=== PATIENT | male | born 1985 | race Asian ===

== ENCOUNTER 2020-07-05 07:42 | Outpatient (CLI) | payer BC, OTHER ==
[2020-07-05 12:10] LABS: BASOPHILS # (AUTO) 0.1 10^3/uL (0.0-0.1); BASOPHILS % (AUTO) 1.6 %; EOSINOPHILS % (AUTO) 18.7 %; HCT - HEMATOCRIT 41.9 % (42.0-52.0); HGB - HEMOGLOBIN 12.3 g/dL (14.0-18.0); LYMPHOCYTES # (AUTO) 1.4 10^3/uL (1.5-3.5); LYMPHOCYTES % (AUTO) 24.9 %; MEAN CORPUSCULAR HEMOGLOBIN 20.7 pg (27.0-31.0); MEAN CORPUSCULAR HGB CONC 29.4 g/dL (32.0-36.0); MEAN CORPUSCULAR VOLUME 70.5 fL (80.0-94.0); MEAN PLATELET VOLUME 10.5 fL (7.4-11.4); MONOCYTES # (AUTO) 0.5 10^3/uL (0.0-1.0); MONOCYTES % (AUTO) 9.8 %; NEUTROPHILS # (AUTO) 2.5 10^3/uL (1.5-6.6); NEUTROPHILS % (AUTO) 44.6 %; PLT - PLATELET COUNT 252 10^3/uL (130-450); RED BLOOD COUNT 5.94 10^6/uL (4.70-6.10); RED CELL DISTRIBUTION WIDTH 14.2 % (12.0-15.0); WHITE BLOOD COUNT 5.5 x10^3/uL (4.8-10.8)
[2020-07-05 12:21] LABS: ALBUMIN 4.2 g/dL (3.2-5.5); ALBUMIN/GLOBULIN RATIO 1.3 (1.0-2.2); ALKALINE PHOSPHATASE 56 IU/L (42-121); ALT ALANINE AMINOTRANSFERASE 17 IU/L (10-60); AST ASPARTATE AMINOTRANSFERASE 18 IU/L (10-42); BILIRUBIN,TOTAL 0.9 mg/dL (0.2-1.0); BUN - BLOOD UREA NITROGEN 17 mg/dL (6-20); CALCIUM 9.4 mg/dL (8.5-10.3); CARBON DIOXIDE - CO2 30 mmol/L (21-32); CHLORIDE 105 mmol/L (101-111); CHOL/HDL RATIO 2.6 (<5.0); CHOLESTEROL 157 mg/dL; GFR - MDRD 86 (>89); GLUCOSE 91 mg/dL (70-100); HDL CHOLESTEROL 61 mg/dL; LDL CHOLESTEROL,CALCULATED 88 mg/dL; LDL/HDL RATIO 1.4 (<3.6); SODIUM 141 mmol/L (135-145); TOTAL PROTEIN 7.5 g/dL (6.7-8.2); TRIGLYCERIDES 41 mg/dL; VLDL CHOLESTEROL 8 mg/dL
[2020-07-05 12:33] LABS: THYROID STIMULATING HORMONE 1.75 uIU/mL (0.34-5.60)
== END 2020-07-05 07:43 | disposition home or self-care (01) ==
LOC: LAB.N 07:42
PROVIDERS: ATTEND Physician Assistant Medical
DX: Z00.00 Encounter for general adult medical examination without abnormal findings (principal)
CPT/HCPCS: 36415; 80053; 80061; 83721; 84443; 85025

== ENCOUNTER 2020-07-22 20:29 | Outpatient (CLI) | payer OTHER | END 2020-07-22 20:30 | disposition home or self-care (01) | LOC: COV 20:29 | PROVIDERS: ATTEND Family Medicine | DX: Z20.822 Contact with and (suspected) exposure to COVID-19 (principal) ==

== ENCOUNTER 2020-08-22 17:41 | Emergency (ER) | payer OTHER ==
[2020-08-22 17:49] VITALS: BP 134/90
[2020-08-22] MEDS ORDERED: DOXYCYCLINE 100 MG TABLET PO STA (18:07)
[2020-08-22] MEDS ORDERED: LIDOCAINE-EPINEPH-TETRACAINE 3 ML SYRINGE TOP STA (18:07)
[2020-08-22] MEDS ORDERED: ACETAMINOPHEN 325 MG TABLET PO STA (18:07)
--- NOTE | 2020-08-22 19:07 | ED Physician Documentation ---
PD HPI HEENT - Stated complaint Stated Complaint: DOG BITE - Chief complaint Chief Complaint: Laceration - History obtained from History obtained from: Patient - History of Present Illness Timing - onset: How many minutes ago (30) Timing - details: Abrupt onset, Still present (less bleeding than at initial of the wounds. Normal sensation on face.) Location: Other (right cheek bit by dog when he bent down to pet the dog that was there with a friend of a friend. It bled right away. Patient came directly to ER.) Associated symptoms: No: Fever, Congestion, Swollen nodes Similar symptoms before: Has not had sx before Review of Systems Constitutional: denies: Fever Eyes: denies: Loss of vision, Decreased vision, Photophobia, Irritation Nose: denies: Rhinorrhea / runny nose, Congestion Throat: denies: Sore throat Respiratory: denies: Cough Neurologic: denies: Focal weakness, Numbness PD PAST MEDICAL HISTORY - Past Medical History Cardiovascular: None Respiratory: None Neuro: None Endocrine/Autoimmune: None Psych: Depression - Past Surgical History Past Surgical History: No - Present Medications Home Medications: Ambulatory Orders Medication Instructions Recorded Confirmed FLUoxetine [PROzac] 60 mg ORAL DAILY 07/06/15 07/06/15 Doxycycline Monohydrate 150 mg PO BID #10 cap 08/22/20 - Allergies Allergies/Adverse Reactions: Allergies Allergy/AdvReac Type Severity Reaction Status Date / Time Penicillins AdvReac Itching Verified 08/22/20 17:49 - Social History Does the pt smoke?: No Smoking Status: Never smoker Does the pt drink ETOH?: No Does the pt have substance abuse?: No - Immunizations Immunizations are current?: No Immunizations: TDAP >10years/unknown PD ED PE NORMAL - Vitals Vital signs reviewed: Yes - General General: Alert and oriented X 3, No acute distress, Well developed/nourished - HEENT HEENT: PERRL, EOMI, Other (right upper cheek with 1.5 cm laceration, irregular edge, with mild bleeding still. No deep structures. Lower lip with 1 mm superficial lac. No direct care needed. ) Results - Vitals Vitals: Vital Signs - 24 hr 08/22/20 17:44 Temperature 36.3 C L Heart Rate 101 H Respiratory 14 Rate Blood Pressure 134/90 H O2 Saturation 99 Oxygen O2 Source Room air Procedures - Laceration (location) right facial cheek Length in cm: 1.5 Wound type: Irregular, Into subcut fat Neurovascular status: Sensory intact, Motor intact, Vascular intact Anesthesia: LET Wound preparation: Irrigated copiously NS, Wound explored, To the base. No: FB identified Skin layer closure: Nylon, Running, Size #-0 - enter number (6), Sutures - enter # (7) Other: Patient tolerated well, No complications, Neurovascular intact, Tetanus UTD PD MEDICAL DECISION MAKING - ED course Complexity details: considered differential, d/w patient, other (patiebnt did talk with [facility]) Departure - Departure Disposition: Home, Self Care Clinical Impression: Dog bite of face Qualifiers: Encounter type: initial encounter Qualified Code(s): S01.85XA - Open bite of other part of head, initial encounter Condition: Stable Record reviewed to determine appropriate education?: Yes Instructions: ED Laceration Facial Sutr Tape Follow-Up: Holly Gong PA-C [Primary Care Provider] - Prescriptions: Doxycycline Monohydrate 150 mg PO BID #10 cap Comments: It is okay to wash and shower. Clean off the wound twice a day with soap and water, or peroxide and water. Apply some antibiotic ointment to it to keep it moist. Also to watch for signs of infection such as purulence, redness or increasing pain. Return to your primary care or the ER at the specified time for suture removal. Suture removal 6 to 7 days. Doxycycline twice daily for 5 days for concern of infection. Follow-up with animal control/[employer] police regarding the dog bite and condition of the dog, per their instructions with the conversation today in the ER. Tylenol ibuprofen as needed for pains. Discharge Date/Time: 08/22/20 19:49
== END 2020-08-22 19:49 | disposition home or self-care (01) ==
LOC: ED 17:41
DX: S01.451A Open bite of right cheek and temporomandibular area, initial encounter (principal); W54.0XXA Bitten by dog, initial encounter
CPT/HCPCS: 12011; 99282; 99283; A9270

== ENCOUNTER 2020-08-27 19:13 | Emergency (ER) | payer OTHER ==
--- OUTSIDE RECORDS SUMMARY | 2020-08-27 19:16 | EXTERNAL MEDICAL SUMMARY RPT | Continuity of Care Document ---
:1985 Demographics Phone Unavailable Preferred Language Unknown Marital Status Unknown Tenriism Affiliation Unknown Race Unknown Ethnic Group Unknown Author Organization [facility] Address [address] [phone] Phone Allergies Encounters Medications Problems Results
--- OUTSIDE RECORDS SUMMARY | 2020-08-27 19:20 | EXTERNAL MEDICAL SUMMARY RPT | Continuity of Care Document ---
:1985 Demographics Phone Unavailable Preferred Language Unknown Marital Status Unknown Yazdanism Affiliation Unknown Race Unknown Ethnic Group Unknown Author Organization [facility] Address [address] [phone] Phone Allergies Encounters Medications Problems Results
[2020-08-27] MEDS ORDERED: IBUPROFEN 800 MG TABLET PO STA (20:04)
[2020-08-27] MEDS ORDERED: BACITRACIN ZINC OINT 1 PACKET TOP STA (20:04)
[2020-08-27] MEDS ORDERED: CHERRY SYRUP 10 ML UDC PO ONE (20:04)
[2020-08-27] MEDS ORDERED: DEXAMETHASONE 10 MG/ML VIAL PO STA (20:04)
--- NOTE | 2020-08-27 20:06 | ED Physician Documentation ---
History of Present Illness - Stated complaint Stated Complaint: BILAT HAND PX - Chief complaint Chief Complaint: Ext Problem - History obtained from History obtained from: Patient - History of Present Illness Timing: Today Pain level max: 5 Pain level now: 5 - Additonal information Additional information: 35-year-old male was recently placed on doxycycline after a dog bite. He states that today at work he noticed that his hands began to feel like they were burning. He has been working in the field all day picking strawberries. He states that his hands burn, but do not itch. It is just on the index finger and thumb of his bilateral hands. No rash elsewhere. Worse with movement, better with rest. Review of Systems Constitutional: denies: Fever GI: denies: Vomiting Musculoskeletal: denies: Neck pain, Back pain PD PAST MEDICAL HISTORY - Past Medical History Past Medical History: No Cardiovascular: None Respiratory: None Neuro: None Endocrine/Autoimmune: None Psych: Depression - Past Surgical History Past Surgical History: No - Present Medications Home Medications: Ambulatory Orders Medication Instructions Recorded Confirmed Doxycycline Monohydrate 150 mg PO BID #10 cap 08/22/20 08/27/20 Bacitracin Zinc Oint 1 applic TOP BID #1 gm 08/27/20 - Allergies Allergies/Adverse Reactions: Allergies Allergy/AdvReac Type Severity Reaction Status Date / Time Penicillins AdvReac Itching Verified 08/27/20 19:27 - Social History Does the pt smoke?: No Smoking Status: Never smoker Does the pt drink ETOH?: No Does the pt have substance abuse?: No - Immunizations Immunizations are current?: Yes Immunizations: TDAP >10years/unknown - POLST Patient has POLST: No PD ED PE NORMAL - Vitals Vital signs reviewed: Yes - General General: Alert and oriented X 3, No acute distress - HEENT HEENT: Moist mucous membranes - Derm Derm: Warm and dry - Extremities Extremities: Other (Erythema to the index finger and thumb of the bilateral hands, creating a C shape with the webspace. Blanches easily. Neurovascular intact. No blistering.) - Neuro Neuro: Alert and oriented X 3 Results - Vitals Vitals: Vital Signs - 24 hr 08/27/20 08/27/20 19:21 20:19 Temperature 37.1 C 37.5 C Heart Rate 78 71 Respiratory 16 16 Rate Blood Pressure 136/86 H 129/93 H O2 Saturation 100 100 Oxygen O2 Source Room air PD MEDICAL DECISION MAKING - ED course Complexity details: considered differential, d/w patient ED course: Patient appears to have a sunburn to the index finger and rightPatient appears to have a sunburn of the index finger and thumb of the bilateral hands, this would be on the surface that it was exposed to the sun all day while picking strawberries. Likely caused by the sensitivity to the sun from the doxycycline. Bacitracin applied. A single dose of steroid was given for swelling. Anti- inflammatory was given as well. Recommend sunscreen and gloves when he is outside. This does not appear to be an allergic reaction. This does not appear to be a chemical dermatitis. Patient counseled regarding signs and symptoms for which I believe and urgent re-evaluation would be necessary. Patient with good understanding of and agreement to plan and is comfortable going home at this time This document was made in part using voice recognition software. While efforts are made to proofread this document, sound alike and grammatical errors may occur. Departure - Departure Disposition: 01 Home, Self Care Clinical Impression: Sunburn Condition: Good Instructions: ED Burn Sunburn Follow-Up: Holly Gong PA-C [Primary Care Provider] - As Needed Prescriptions: Bacitracin Zinc Oint 1 applic TOP BID #1 gm Comments: This should heal in the next few days. You can use motrin for pain. Wear dale nscreen outside in the sun. Discharge Date/Time: 08/27/20 20:25
[2020-08-27 20:20] VITALS: BP 129/93
== END 2020-08-27 20:25 | disposition home or self-care (01) ==
LOC: ED 19:13
DX: L55.9 Sunburn, unspecified (principal); X32.XXXA Exposure to sunlight, initial encounter; Y93.89 Activity, other specified; Y92.73 Farm field as the place of occurrence of the external cause; Y99.0 Civilian activity done for income or pay
CPT/HCPCS: 99282; 99284; A9270

== ENCOUNTER 2020-11-07 08:00 | Outpatient (CLI) | payer OTHER ==
[2020-11-07 11:41] LABS: BASOPHILS # (AUTO) 0.1 10^3/uL (0.0-0.1); BASOPHILS % (AUTO) 2.5 %; EOSINOPHILS # (AUTO) 0.7 10^3/uL (0.0-0.7); EOSINOPHILS % (AUTO) 15.7 %; HCT - HEMATOCRIT 40.4 % (42.0-52.0); MEAN CORPUSCULAR HEMOGLOBIN 21.1 pg (27.0-31.0); MEAN CORPUSCULAR HGB CONC 29.7 g/dL (32.0-36.0); MEAN CORPUSCULAR VOLUME 70.9 fL (80.0-94.0); MEAN PLATELET VOLUME 9.8 fL (7.4-11.4); MONOCYTES # (AUTO) 0.5 10^3/uL (0.0-1.0); MONOCYTES % (AUTO) 10.9 %; NEUTROPHILS # (AUTO) 2.1 10^3/uL (1.5-6.6); NEUTROPHILS % (AUTO) 47.7 %; PLT - PLATELET COUNT 233 10^3/uL (130-450); WHITE BLOOD COUNT 4.4 x10^3/uL (4.8-10.8)
[2020-11-07 11:50] LABS: BILIRUBIN,URINE NEGATIVE (NEGATIVE); GLUCOSE, URINE (UA) NEGATIVE (NEGATIVE); KETONES,URINE (UA) NEGATIVE (NEGATIVE); LEUKOCYTE ESTERASE, URINE NEGATIVE (NEGATIVE); NITRITE,URINE NEGATIVE (NEGATIVE); OCCULT BLOOD,URINE LARGE (NEGATIVE); PROTEIN,URINE 30 mg/dL (NEGATIVE); UROBILINOGEN,URINE 0.2 (NORMAL) E.U./dL (NORMAL)
[2020-11-07 11:57] LABS: BACTERIA,URINE Rare /HPF (None Seen); CLARITY,URINE BLOODY (CLEAR); CRYSTALS,URINE 6-10 Calcium Oxalate /LPF; RBC,URINE TNTC /HPF (0-5); SQUAMOUS EPITHELIAL CELL,UR RARE Squamous (<= Few); WBC,URINE 0-3 /HPF (0-3)
[2020-11-07 16:20] LABS: CHLAMYDIA TRACHOMATIS DNA NEGATIVE (NEGATIVE); NEISSERIA GONORRHOEAE DNA NEGATIVE (NEGATIVE)
[2020-11-07 18:06] LABS: ALBUMIN 3.9 g/dL (3.2-5.5); ALBUMIN/GLOBULIN RATIO 1.3 (1.0-2.2); BILIRUBIN,TOTAL 0.8 mg/dL (0.2-1.0); CALCIUM 8.8 mg/dL (8.5-10.3); POTASSIUM 3.8 mmol/L (3.5-5.0)
== END 2020-11-07 23:59 | disposition home or self-care (01) ==
LOC: LAB.N 08:00
PROVIDERS: ATTEND Family Medicine
DX: R31.9 Hematuria, unspecified (principal)
CPT/HCPCS: 36415; 80053; 81001; 84153; 85025; 87086; 87491; 87591; 87661

== ENCOUNTER 2020-12-07 05:34 | Outpatient (CLI) | payer OTHER | END 2020-12-07 05:35 | disposition EMS.NT | LOC: EMS 05:34 | DX: R10.9 Unspecified abdominal pain (principal); R11.0 Nausea; R82.998 Other abnormal findings in urine ==

== ENCOUNTER 2020-12-07 06:24 | Emergency (ER) | payer OTHER ==
--- NOTE | 2020-12-07 07:21 | ED Physician Documentation ---
PD HPI ABD PAIN - Stated complaint Stated Complaint: BACK ABD PX - Chief complaint Chief Complaint: UTI - History obtained from History obtained from: Patient - History of Present Illness Timing - onset: How many weeks ago (almost a week of right abd to right flank pain. Seen by Walk In and presumed kidney stone with blood in urine. Sent to [facility] and had outpt CT ordered. This was done couple days ago and he was called/told that it showed right sided kidney stone. He has appt with Urology this coming week.) Timing - details: Gradual onset, Still present (much worse last night into this morning, with pain 10/10 this morning, so here for eval.), Waxing and waning Quality: Aching, Sharp, Pain Location: RLQ Radiation: Right flank Associated symptoms: Nausea, Hematuria. No: Fever, Vomiting, Diarrhea, Dysuria Similar symptoms before: Has not had sx before Recently seen: Clinic Review of Systems Constitutional: denies: Fever, Chills Nose: denies: Rhinorrhea / runny nose, Congestion Throat: denies: Sore throat Respiratory: denies: Cough GI: reports: Abdominal Pain, Nausea. denies: Vomiting, Diarrhea Skin: denies: Rash Musculoskeletal: reports: Back pain (right flank.). denies: Neck pain PD PAST MEDICAL HISTORY - Past Medical History Past Medical History: Yes Cardiovascular: None Respiratory: None Neuro: None Endocrine/Autoimmune: None GI: None : None HEENT: None Psych: Depression Musculoskeletal: None Derm: None - Past Surgical History Past Surgical History: No - Present Medications Home Medications: Ambulatory Orders Medication Instructions Recorded Confirmed HYDROcod/ACETAM 5/325 [[place] 5/325] 1 ea PO Q6H PRN #18 tablet 12/07/20 Tamsulosin [Flomax] 0.4 mg PO DAILY #5 cap 12/07/20 busPIRone [Buspar] 10 mg PO DAILY 12/07/20 12/07/20 dexAMETHasone [Decadron] 4 mg PO DAILY #5 tablet 12/07/20 - Allergies Allergies/Adverse Reactions: Allergies Allergy/AdvReac Type Severity Reaction Status Date / Time Penicillins AdvReac Itching Verified 08/27/20 19:27 - Social History Does the pt smoke?: No Smoking Status: Never smoker Does the pt drink ETOH?: No Does the pt have substance abuse?: No - Immunizations Immunizations are current?: Yes Immunizations: TDAP >10years/unknown - POLST Patient has POLST: No PD ED PE NORMAL - Vitals Vital signs reviewed: Yes - General General: Alert and oriented X 3, No acute distress, Well developed/nourished - Cardiac Cardiac: RRR, No murmur - Respiratory Respiratory: Clear bilaterally - Abdomen Abdomen: Normal bowel sounds, Soft, Non distended, No organomegaly, Other (some tender RLQ without guarding nor percussion. Not really [place] point. ) - Male Male : Deferred - Rectal Rectal: Deferred - Derm Derm: Normal color, Warm and dry Results - Vitals Vitals: Vital Signs - 24 hr 12/07/20 12/07/20 12/07/20 06:34 08:38 10:00 Temperature 37.0 C Heart Rate 60 64 56 L Respiratory 24 18 19 Rate Blood Pressure 116/101 H 122/88 H 110/79 O2 Saturation 95 98 99 Oxygen O2 Source Room air - Labs Labs: Laboratory Tests 12/07/20 12/07/20 07:53 10:02 Sodium 143 Potassium 4.5 Chloride 105 Carbon Dioxide 30 Anion Gap 8.0 BUN 18 Creatinine 1.2 Estimated GFR (MDRD) 69 L Glucose 125 H Calcium 9.3 Urine Color DARK YELLOW Urine Clarity CLOUDY Urine pH 7.0 Ur Specific [place] 1.020 Urine Protein TRACE Urine Glucose (UA) NEGATIVE Urine Ketones TRACE Urine Occult Blood LARGE H Urine Nitrite NEGATIVE Urine Bilirubin NEGATIVE Urine Urobilinogen 0.2 (NORMAL) Ur Leukocyte Esterase NEGATIVE Urine RBC TNTC H Urine WBC 11-25 H Ur Squamous Epith Cells RARE Squamous Urine Bacteria Few Urine Mucus Few Strands Ur Microscopic Review INDICATED Urine Culture Comments NOT INDICATED PD MEDICAL DECISION MAKING - ED course Complexity details: reviewed old records (unfortunately, after few hours, [facility] has not sent us the report of his CT from couple days ago, so will go with patient verbal that it showed a stone on right side ureter. Frustrating to not be able to just get a CT report from another facility. ), re-evaluated patient (Much improved with IV meds. ), considered differential (symptoms c/w kidney stone, and he reports Dx with stone by CT at [facility]. I would have liked to know size stone/etc. but could not get report from their Records nor DI. ), d/w patient Departure - Departure Disposition: 01 Home, Self Care Clinical Impression: Right sided abdominal pain, Ureterolithiasis Condition: Stable Record reviewed to determine appropriate education?: Yes Instructions: ED Stone Renal W Colic Prescriptions: dexAMETHasone [Decadron] 4 mg PO DAILY #5 tablet Tamsulosin [Flomax] 0.4 mg PO DAILY #5 cap HYDROcod/ACETAM 5/325 [[place] 5/325] 1 ea PO Q6H PRN #18 tablet PRN Reason: Pain Comments: Stay well-hydrated. You do not need to over hydrate per se. Use Decadron steroid anti-inflammatory daily for the next several days. Tamsulosin daily as well to reduce ureteral spasms around the stone. Add Tylenol every 4-6 hours if needed for pain or hydrocodone if needed for worse pain. Follow-up with urology this coming week as planned. Return to the ER if worse despite the above. I transmitted your prescription to [facility] pharmacy in [place]. I am prescribing a short course of narcotic pain medication for you. These are potentially dangerous and addictive medications that should be used carefully. These medications may constipate you. Take an zjzl-bgk-anhnmky stool softener such as docusate twice daily with plenty of water while taking these medications. If you go 24 hours without a bowel movement, take ymta-jle-eoyenod MiraLAX, per package instructions. Do not drink or drive while taking these medications. If you received narcotic or sedating medications while in the emergency department do not drive for 24 hours. Store this medication in a safe, secure place and out of reach of children. It is a violation of federal law to give or sell this medication to another person or to use in a manner other than prescribed. The ED will not refill narcotic prescriptions, including prescriptions lost or stolen. You can dispose of unwanted medications at the [facility]'s office or at several pharmacies such as [facility]. Discharge Date/Time: 12/07/20 10:12
[2020-12-07] MEDS ORDERED: SODIUM CHLORIDE 0.9% 1,000 ML IV STA (07:34)
[2020-12-07] MEDS ORDERED: KETOROLAC 15 MG/ML VIAL IVP STA (07:34)
[2020-12-07] MEDS ORDERED: HYDROmorphone 1 MG/ML CARPUJECT IVP STA (07:34)
[2020-12-07] MEDS ORDERED: TAMSULOSIN 0.4 MG CAPSULE PO STA (07:35)
[2020-12-07 08:17] LABS: CALCIUM 9.3 mg/dL (8.5-10.3); CREATININE 1.2 mg/dL (0.6-1.2); POTASSIUM 4.5 mmol/L (3.5-5.0)
[2020-12-07 10:07] VITALS: BP 110/79
[2020-12-07 10:08] LABS: BILIRUBIN,URINE NEGATIVE (NEGATIVE); GLUCOSE, URINE (UA) NEGATIVE (NEGATIVE); KETONES,URINE (UA) TRACE mg/dL (NEGATIVE); LEUKOCYTE ESTERASE, URINE NEGATIVE (NEGATIVE); NITRITE,URINE NEGATIVE (NEGATIVE); OCCULT BLOOD,URINE LARGE (NEGATIVE); PROTEIN,URINE TRACE mg/dL (NEGATIVE); UROBILINOGEN,URINE 0.2 (NORMAL) E.U./dL (NORMAL)
[2020-12-07 10:10] LABS: CLARITY,URINE CLOUDY (CLEAR)
[2020-12-07 10:15] LABS: BACTERIA,URINE Few /HPF (None Seen); MUCUS,URINE Few Strands; RBC,URINE TNTC /HPF (0-5); SQUAMOUS EPITHELIAL CELL,UR RARE Squamous (<= Few)
== END 2020-12-07 10:12 | disposition home or self-care (01) ==
LOC: ED 06:24
DX: N20.1 Calculus of ureter (principal)
CPT/HCPCS: 36415; 80048; 81001; 96361; 96374; 99283; 99284; A9270; J1170; 81003; 87086

== ENCOUNTER 2021-01-14 13:52 | Outpatient (CLI) | payer OTHER ==
--- NOTE | 2021-01-23 00:05 | XRAY Report ---
PROCEDURE: Abdomen 1 View X-Ray INDICATIONS: NEPHROLITHIASIS TECHNIQUE: 1 view of the abdomen were acquired. COMPARISON: None FINDINGS: Surgical changes and devices: None. Bowel: No pneumoperitoneum. The bowel gas pattern is normal. Soft tissues: No masses; visualized solid organ contours appear normal in size. There are 2 calcific ations overlying the inferior aspect of the left renal pole measuring 4 mm and 5 mm. Bones: No suspicious bony abnormalities. IMPRESSION: Calcifications overlying the left renal pole suspicious for renal calculi. Reviewed by: Galilea Chi MD on 01/23/2021 12:03 AM PDT Approved by: Galilea Chi MD on 01/23/2021 12:03 AM PDT Station ID: [id number]
== END 2021-01-14 23:59 ==
LOC: DI.N 13:52
PROVIDERS: ATTEND Urology
DX: N20.0 Calculus of kidney (principal)

== ENCOUNTER 2022-11-09 09:04 | Emergency (ER) | payer BC, OTHER ==
--- NOTE | 2022-11-09 10:00 | XRAY Report ---
PROCEDURE: Chest 1 View X-Ray INDICATIONS: Chest pain TECHNIQUE: One view of the chest was acquired. COMPARISON: Chest x-ray 03/18/2016 FINDINGS: Surgical changes and devices: None. Lungs and pleura: No pleural effusions or pneumothorax. Lungs are clear. Mediastinum: Mediastinal contours appear normal. Heart size is normal. Bones and chest wall: No suspicious bony lesions. Prominent S-shaped scoliotic curvature. Overlying soft tissues appear unremarkable. IMPRESSION: No acute cardiopulmonary process. Reviewed by: Galilea Chi MD on 11/09/2022 9:59 AM PDT Approved by: Galilea Chi MD on 11/09/2022 9:59 AM PDT Station ID: [id number]
[2022-11-09 10:27] LABS: ALBUMIN 4.4 g/dL (3.2-5.5); LIPASE 36 U/L (11-82)
[2022-11-09 10:28] LABS: ALBUMIN/GLOBULIN RATIO 1.4 (1.0-2.2); ALKALINE PHOSPHATASE 78 IU/L (42-121); ALT ALANINE AMINOTRANSFERASE 14 IU/L (10-60); AST ASPARTATE AMINOTRANSFERASE 17 IU/L (10-42); BILIRUBIN,TOTAL 0.3 mg/dL (0.2-1.0); BUN - BLOOD UREA NITROGEN 12 mg/dL (6-20); CALCIUM 9.6 mg/dL (8.5-10.3); CARBON DIOXIDE - CO2 35 mmol/L (21-32); CHLORIDE 101 mmol/L (101-111); CREATININE 1.1 mg/dL (0.6-1.3); GFR - MDRD 76 (>89); GLUCOSE 92 mg/dL (74-104); POTASSIUM 4.7 mmol/L (3.5-4.5); SODIUM 140 mmol/L (135-145); TOTAL PROTEIN 7.5 g/dL (6.4-8.9)
[2022-11-09 10:30] LABS: BASOPHILS # (AUTO) 0.1 10^3/uL (0.0-0.1); BASOPHILS % (AUTO) 1.4 %; EOSINOPHILS % (AUTO) 13.1 %; HCT - HEMATOCRIT 43.3 % (42.0-52.0); HGB - HEMOGLOBIN 12.8 g/dL (14.0-18.0); LYMPHOCYTES % (AUTO) 12.2 %; MEAN CORPUSCULAR HEMOGLOBIN 20.7 pg (27.0-31.0); MEAN CORPUSCULAR HGB CONC 29.6 g/dL (32.0-36.0); MEAN CORPUSCULAR VOLUME 70.1 fL (80.0-94.0); MEAN PLATELET VOLUME 9.9 fL (7.4-11.4); MONOCYTES # (AUTO) 0.6 10^3/uL (0.0-1.0); MONOCYTES % (AUTO) 7.6 %; NEUTROPHILS # (AUTO) 5.2 10^3/uL (1.5-6.6); NEUTROPHILS % (AUTO) 65.4 %; PLT - PLATELET COUNT 224 10^3/uL (130-450); RED BLOOD COUNT 6.18 10^6/uL (4.70-6.10); RED CELL DISTRIBUTION WIDTH 14.7 % (12.0-15.0); WHITE BLOOD COUNT 7.9 x10^3/uL (4.8-10.8)
[2022-11-09 10:34] LABS: TROPONIN I HIGH SENSITIVITY < 2.3 ng/L (2.3-19.7)
--- NOTE | 2022-11-09 11:28 | ED Physician Documentation ---
PD HPI CHEST PAIN - Stated complaint Stated Complaint: CHEST PX - Chief complaint Chief Complaint: Cardiac - History obtained from History obtained from: Patient - Additional information Additional information: Patient is a 37-year-old male with no significant prior medical history presenting for evaluation of left-sided chest pain that woke him up yesterday and feels like a dull ache. Patient reports that the pain is worse if he is laying down Or moves his arm in a certain way and is better when he is standing up or with walking. He denies associated shortness of air, nausea, vomiting. Denies family history of early coronary artery disease. Denies history of PE, DVT, recent travel or immobilization. He reports his symptoms are currently resolved. Review of Systems Constitutional: denies: Fever Cardiac: reports: Chest pain / pressure Respiratory: denies: Dyspnea, Cough GI: denies: Abdominal Pain Musculoskeletal: denies: Back pain, Extremity pain Neurologic: denies: Headache PD PAST MEDICAL HISTORY - Past Medical History Cardiovascular: None Respiratory: None Neuro: None Endocrine/Autoimmune: None GI: None : None HEENT: None Psych: Depression Musculoskeletal: None Derm: None - Past Surgical History Past Surgical History: No - Present Medications Home Medications: Ambulatory Orders Medication Instructions Recorded Confirmed HYDROcod/ACETAM 5/325 [[place] 5/325] 1 ea PO Q6H PRN #18 tablet 12/07/20 Tamsulosin [Flomax] 0.4 mg PO DAILY #5 cap 12/07/20 busPIRone [Buspar] 10 mg PO DAILY 12/07/20 12/07/20 dexAMETHasone [Decadron] 4 mg PO DAILY #5 tablet 12/07/20 - Allergies Allergies/Adverse Reactions: Allergies Allergy/AdvReac Type Severity Reaction Status Date / Time Penicillins AdvReac Itching Verified 08/27/20 19:27 - Social History Does the pt smoke?: No Smoking Status: Never smoker Does the pt drink ETOH?: No Does the pt have substance abuse?: No - Immunizations Immunizations are current?: Yes Immunizations: TDAP >10years/unknown - POLST Patient has POLST: No PD ED PE NORMAL - General General: Alert and oriented X 3, No acute distress, Well developed/nourished - HEENT HEENT: Atraumatic - Neck Neck: Supple, no meningeal sign - Cardiac Cardiac: RRR, No murmur, No rub, Strong equal pulses - Respiratory Respiratory: No respiratory distress, Clear bilaterally - Abdomen Abdomen: Soft, Non tender, Non distended - Derm Derm: Warm and dry - Extremities Extremities: No edema, No calf tenderness / cord - Neuro Neuro: Alert and oriented X 3, Normal speech Results - Vitals Vitals: Vital Signs - 24 hr 11/09/22 11/09/22 11/09/22 09:17 10:54 11:36 Temperature 37.0 C 36.8 C Heart Rate 100 72 70 Respiratory 20 17 16 Rate Blood Pressure 142/105 H 143/103 H 129/88 H O2 Saturation 100 100 99 Oxygen O2 Source Room air - EKG (time done) 0924 EKG releavant findings:: EKG personally interpreted by author of this note. Relevant findings are: Rate 80, NSR LAFB, no STEMI Rate: Rate (enter#) (80) Rhythm: NSR Intervals: Other (LAFB) Ischemia: No: ST elevation c/w ischemia, ST depression Compare to prior EKG: Unchanged from prior EKG, Old EKG unavailable - Labs Labs: Laboratory Tests 11/09/22 11/09/22 10:09 10:27 WBC 7.9 RBC 6.18 H Hgb 12.8 L Hct 43.3 MCV 70.1 L MCH 20.7 L MCHC 29.6 L RDW 14.7 Plt Count 224 MPV 9.9 Neut # (Auto) 5.2 Lymph # (Auto) 1.0 L [place] # (Auto) 0.6 Eos # (Auto) 1.0 H Baso # (Auto) 0.1 Absolute Nucleated RBC 0.00 Nucleated RBC % 0.0 Sodium 140 Potassium 4.7 H Chloride 101 Carbon Dioxide 35 H Anion Gap 4.0 L BUN 12 Creatinine 1.1 Estimated GFR (MDRD) 76 L Glucose 92 Calcium 9.6 Total Bilirubin 0.3 AST 17 ALT 14 Alkaline Phosphatase 78 Troponin I High Sens < 2.3 L Total Protein 7.5 Albumin 4.4 Globulin 3.1 Albumin/Globulin Ratio 1.4 Lipase 36 PD Medical Decision Making - ED course Complexity details: reviewed results, re-evaluated patient, d/w patient ED course: Patient is a 37-year-old male presenting for evaluation of left-sided chest pain. Patient reports pain is worse with laying down and with certain arm movements. It is better when he is walking or standing up. Denies recent illness. No fever or cough. No recent trauma. No history of coronary artery disease, PE or DVT. EKG is reviewed without signs of acute ischemia. Labs including CBC, chemistries and troponin were obtained and reviewed and without significant findings. He is feeling better here. Feel that ACS would be very unlikely given the description of his symptoms, lack of risk factors and duration of symptoms with a negative high-sensitivity troponin. His heart score places him in the low risk category. PERC negative. Doubt dissection as symptoms are not migratory. Patient counseled on need for close follow-up with primary care provider as well as strict return precautions for any worsening. Departure - Departure Disposition: 01 Home, Self Care Clinical Impression: Left-sided chest pain Condition: Stable Instructions: ED Chest Pain Atypical Unkn Cause Follow-Up: Holly Gong PA-C [Primary Care Provider] - Comments: The exact cause for your chest pain at this time is unclear but your testing that does not show signs of a heart attack today. Your chest x-ray is clear. I would recommend using an anti-inflammatory such as ibuprofen as needed for pain as well as close follow-up with your primary care provider. If at anytime you develop worsening symptoms such as increased pain, pain in any location or any new symptoms that are concerning to you please return to the emergency department. Forms: PCP List Discharge Date/Time: 11/09/22 11:36
[2022-11-09 11:43] VITALS: BP 129/88; O2SAT 99
== END 2022-11-09 11:36 | disposition home or self-care (01) ==
LOC: ED 09:04
DX: R07.9 Chest pain, unspecified (principal)
CPT/HCPCS: 36415; 80053; 83690; 84484; 85025; 93005; 99283; 99284

== ENCOUNTER 2023-04-06 10:10 | Outpatient (CLI) | payer BC ==
--- NOTE | 2023-04-06 10:43 | Sleep Patient Instructions ---
Sleep Center Visit Summary - Patient Visit Information Reason for Visit: Initial consult for evaluation of sleep disordered breathing and other sleep issues. - Patient Instructions Instructions Attached: Sleep Study, Sleep Study Home Monitor Additional Instructions: You will be completing a sleep study, either an in-lab polysomnography (PSG) or home sleep study (HST). You will follow-up in the sleep care office after the sleep study is completed to hear the results and talk about therapy, if needed. You will be called by our office staff to schedule this appointment, but you may contact us with any questions. - Clinic Information Contact: [facility] [address] [place] [id number] [email or web address] T: [phone]
[2023-04-06 10:45] VITALS: BP 132/96; O2SAT 98
--- NOTE | 2023-04-06 10:45 | SLEEP CARE CONSULTATION ---
Information from patient questionnaire entered by Nica Torres. I have reviewed and concur with the information entered by Nica Torres. This document represents the service I personally performed and the decisions made by me, Geneva Alaniz ARNP. History of Present Illness Service Date and Time: 04/06/2023 1010 Reason for Visit: New patient Chief Complaint: reports: Insomnia, Unrefreshed sleep, Snoring, Excessive daytime sleepiness, Observed pauses in breathing, Fatigue, Frequent awakenings at night, Other (Headache when waking up) Date of Onset: Years, with varying symptoms Usual bedtime: After midnight Time it takes to fall asleep: Usually within half an hour Snores at night: Yes Observed to quit breathing while asleep: Yes Sleeps alone due to snoring: No (N/A) Number of times waking at night: As often as hourly Reasons for waking at night: reports: Snoring, Gasping for air, Other (Unknown reason). denies: Choking Toss, Turn, or Twitch while sleeping: Yes Recalls having dreams: Yes Usually gets out of bed at: 9-10 AM Feels refreshed in the morning: No Morning headache: Yes (3-4 days a week; Need medication to resolve; poonam happens after a nap) Sleepy or fatigued during the day: Yes Ever fallen asleep while driving: Yes (drowsy driving, no accidents) Takes day naps: Yes (schedule varies and will take naps throughout week; some unintentional) Dreams during day naps: Yes Prior sleep studies: No Additional HPI information: I had the pleasure of seeing CHRISTINA KENYON today regarding the possibility of him having a sleep disorder. His current complaints are unrefreshed sleep, excessive daytime sleepiness, observed pauses in breathing, fatigue, frequent night awakenings and waking up with headaches. He has being treated by a psychiatrist practitioner for his possible attention deficit. They were asking questions about sleep and then recommended being seen by sleep specialist. He has been told he snores loudly. He says he sometimes wakes up with a dry mouth and with some shortness of breath. He says he does wake up frequently, about every 2-3 hours or so. 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 Patient is single and lives in [place]. Have you smoked in the past 12 months: No Alcohol use: Yes Alcohol amount and frequency: 1 glass, rarely Caffeine use: Yes Caffeine amount and frequency: Whenever thirsty, constantly Family History Family history of sleep disordered breathing: Yes Family Hx Sleep Apnea: Father: Snoring Allergies and Home Medications Known drug allergies: Yes (Penicillin) Drug allergies reviewed: Yes Home medication list reviewed: Yes Allergy and home medication list: Allergies Penicillins Adverse Reaction (Verified 04/02/23 10:56) Itching Home Medications Medication Instructions Recorded Confirmed Last Taken Type Benadryl 25 mg ORAL PRN 04/06/23 Unknown History Venlafaxine 225 mg ORAL DAILY 04/06/23 04/06/23 Unknown History Excedrin, Tylenol and Ibuprofen, as needed Review of Systems Weight gain over past 5 years: 0 Weight loss over past 5 years: 0 Cardiovascular: reports: other (Murmur). denies: high blood pressure Respiratory: reports: shortness of breath Gastrointestinal: reports: nausea (noticing withing past year), vomitting (noticing withing past year), diarrhea (noticing withing past year), abdominal pain (noticing withing past year) Neurological: reports: headaches Psychiatric: reports: Attention Deficit Hyperactivity, anxiety, depression Ear/Nose/Throat: reports: nasal congestion, sinus problems, wisdom teeth removed. denies: tonsillectomy Endocrine: reports: sluggishness (/tired) Immunologic: reports: sneezing (/runny nose), allergies to food or environment Physical Exam Vital signs obtained and entered by: Geneva Casey NP Blood Pressure: 132/96 Cuff size: regular (right) Heart Rate: 81 O2 Saturation: 98 Height: 5 ft 4 in Weight: 116 lb 12.8 oz Body Mass Index: 20.0 BMI Classification: Normal Neck circumference: 13.5 (inches) Mouth and throat: narrow oropharynx Soft palate: long Hard palate: arched Uvula: normal Uvula visualization: 50% Mallampati Class II Tongue: enlarged in size with teeth arnold on lateral edges Tonsils: 2+ Neck: normal w/o lymphadenopathy or thyromegaly Heart: regular rate and rhythm Lungs: clear bilaterally Impression and Plan 1. Suspected Obstructive Sleep Apnea-Hypopnea Syndrome, as suggested by a history of loud and irregular snoring, gasping or choking in sleep, morning headache, frequent awakening during the night, unrefreshed sleep, cognitive impairment, and excessive daytime sleepiness. Narrow oropharynx and obesity are common predisposing factors for obstructive sleep apnea-hypopnea syndrome. I recommend proceeding to polysomnography to confirm the diagnosis and to assess severity. If the patient has significant sleep disordered breathing, a manual CPAP titration study will also be performed to find the optimal treatment pressure. I informed the patient of what the sleep studies involve and after some discussion, obtained agreement to proceed. The pathophysiology of obstructive sleep apnea-hypopnea syndrome was discussed with the patient and health risks of cardiovascular and cerebrovascular disease if not treated. Risks of drowsy driving discussed in detail and patient advised to avoid long distance driving and to cotton puller at the first sign of drowsiness. Patient agreed to plan. * Schedule polysomnography. * Avoid long distance driving or driving when feeling sleepy. * Avoid alcohol, sedative and muscle relaxant around bedtime. * Review instructions provided by trained office staff on how to prepare for the sleep study. * Return for follow-up after sleep study completed. Plan: PSG/HST Visit Type: In Office Time Spent with Patient (minutes): 32 Provider Statement: I spent 100% of the Face to Face Visit with the patient with greater than 50% spent counseling the patient and coordination of care.
== END 2023-04-06 10:11 | disposition home or self-care (01) ==
LOC: SC 10:10
PROVIDERS: ATTEND Nurse Practitioner Family
DX: G47.10 Hypersomnia, unspecified (principal); R06.83 Snoring; R06.81 Apnea, not elsewhere classified; R51.9 Headache, unspecified; R53.83 Other fatigue; G47.00 Insomnia, unspecified
CPT/HCPCS: 99203; 99212

== ENCOUNTER 2023-05-03 09:29 | Outpatient (CLI) | payer BC | END 2023-05-03 09:30 | disposition home or self-care (01) | LOC: SC 09:29 | PROVIDERS: ATTEND Nurse Practitioner Family | DX: G47.33 Obstructive sleep apnea (adult) (pediatric) (principal); R09.02 Hypoxemia; F32.A Depression, unspecified | CPT/HCPCS: 95806 ==

== ENCOUNTER 2023-05-07 10:11 | Outpatient (CLI) | payer BC ==
--- NOTE | 2023-05-07 10:30 | Sleep Patient Instructions ---
Sleep Center Visit Summary - Patient Visit Information Reason for Visit: Sleep study follow-up - Patient Instructions Instructions Attached: CPAP Additional Instructions: You are being started on CPAP therapy with pressure setting at 4-15 cmH2O. You w ill need to call the sleep care office to set up your follow up once you have your APAP machine and we will schedule a visit to check compliance and response to therapy at that time. You may call the office with any concerns about pressure feeling too low or too much for adjustment, if needed. You should contact DME supplier for any questions or concerns about mask or equipment. Please call office to schedule a follow up appointment in the sleep care office one month after obtaining new device. - Clinic Information Contact: [facility] [address] [place] [address] [email or web address] T: [phone]
--- NOTE | 2023-05-07 10:34 | SLEEP CARE CONSULTATION ---
Information from patient questionnaire entered by Alexandra Barrett. I have reviewed and concur with the information entered by Alexandra Barrett. This document represents the service I personally performed and the decisions made by , Geneva Alaniz ARNP. History of Present Illness Service Date and Time: 05/07/2023 1011 Initial Hanson Sleepiness Scale score: 13 (in 2023) Current Hanson Sleepiness Scale score: 14 (05/07/23) Additional HPI information: CHRISTINA KENYON returns for follow up and results of the recently performed home sleep study. The sleep study showed moderate obstructive sleep apnea with an average AHI of 16.3 and zenaida oxygen saturation of 83%. I explained the pathophysiology behind obstructive sleep apnea. We then spent quite a bit of time discussing different treatment options. For mild obstructive sleep apnea, surgery and oral appliance are alternatives to nasal CPAP therapy but in moderate or severe cases, nasal CPAP is the most effective and reliable treatment. Because apnea is primarily in supine position, then positional management therapy could be effective. Methods discussed such as positioning with pillows, using a T-shirt with tennis balls in the back or commercial products that have a pillow format on back to prevent supine sleep. I reviewed the impact of weight changes on sleep apnea and strongly recommended losing weight. After some discussion, the patient opted to go with the nasal CPAP therapy. Nasal autoCPAP set at 4-15 cmH20 will be ordered with rationale explained. A manual titration study will be ordered if unable to find optimal pressure with office adjustments. I explained how CPAP machine works and what to expect when using the machine. Using CPAP every night in order to get used to it was emphasized. If snoring or perceives is not getting enough air or too much air from the machine, notify this office. Patient does not drink alcohol. Patient was cautioned about risks of drowsy driving until sleepiness symptoms resolve. Sleep Study - Results Type of Sleep Study: Home sleep study (COMPLETED 05/03/23) Prior sleep studies: No Polysomnography/Home Sleep Study results: Physician Impression: The quality of the study is good. The length of the study is adequate (> 240 minutes). Please also see the tabulated and graphic data. 1. Obstructive Sleep Apnea-Hypopnea (ICD-10 G47.33), moderate, with an AHI of 16.3/hr and zenaida SaO2 of 83%. During the study, the patient had 84 apneas (84 obstructive, 0 central, 0 mixed) and 47 hypopneas. The longest episode lasted 163.0 seconds. The respiratory events occurred more frequently during supine sleep (supine AHI was 29.4 and non-supine, 9.24). 2. Hypoxemia (ICD-10 R09.02), mild, with the lowest oxygen saturation of 83 % and 7.4 minutes with SaO2 under 90%. Baseline oxygen saturation was normal (Average oxygen saturation was 96%). Allergies and Home Medications Known drug allergies: Yes (penicillins) Drug allergies reviewed: Yes Home medication list reviewed: Yes (no changes) Allergy and home medication list: Allergies Penicillins Adverse Reaction (Verified 05/06/23 14:49) Itching Review of Systems Review of systems same as previous: No (ROOT CANAL) Physical Exam Vital signs obtained and entered by: ALEXANDRA Mills MA Blood Pressure: 118/82 (RIGHT ARM) Cuff size: regular Heart Rate: 74 O2 Saturation: 100 Height: 5 ft 4 in Weight: 114 lb 9.6 oz Body Mass Index: 19.6 BMI Classification: Normal Impression and Plan 1. Obstructive Sleep Apnea-Hypopnea Syndrome, moderate, with lowest oxygen saturation of 83%. Obviously this is the cause of the patients symptoms of unrefreshed sleep, and excessive daytime sleepiness. Positive pressure therapy could benefit anxiety and depression. As mentioned above, the patient will be started on nasal autoCPAP therapy with pressure set at 4-15 cmH2O. A manual titration study will be completed if unable to find optimal treatment pressure with office adjustments. Compliance guidelines also reviewed. A copy of compliance guidelines will be given for reference at check out. Because the apnea is more severe supine, I instructed to avoid sleeping supine using pillow positioning until able to start CPAP use. 2. Hypoxemia, mild, with a zenaida oxygen saturation of 83% and 7.4 minutes spent under 90%. The baseline oxygen saturation was normal with an average oxygen saturation 96%. * Nasal auto CPAP therapy, pressure at 4-15 cm H2O. * Avoid alcohol consumption near bedtime. * Avoid supine sleep until using CPAP. * The patient is again cautioned about driving until sleepiness completely resolves. * Return one month after CPAP obtained. I will assess response to therapy and compliance at that time. Counseling Topics: Sleeping position Prescriptions: Auto CPAP Follow up with Sleep Care in: other (compliance followup) Visit Type: In Office Time Spent with Patient (minutes): 20 Provider Statement: I spent 100% of the Face to Face Visit with the patient with greater than 50% spent counseling the patient and coordination of care.
[2023-05-07 10:38] VITALS: BP 118/82; O2SAT 100
== END 2023-05-07 10:12 | disposition home or self-care (01) ==
LOC: SC 10:11
PROVIDERS: ATTEND Nurse Practitioner Family
DX: G47.33 Obstructive sleep apnea (adult) (pediatric) (principal); R09.02 Hypoxemia
CPT/HCPCS: 99212; 99213

== ENCOUNTER 2023-07-14 08:48 | Outpatient (CLI) | payer BC ==
--- NOTE | 2023-07-14 09:24 | Sleep Patient Instructions ---
Sleep Center Visit Summary - Patient Visit Information Reason for Visit: 1st Compliance visit - Patient Instructions Additional Instructions: You were here for follow up of CPAP therapy. You will be continued on CPAP therapy with pressure at 5-10 cmH2O. You will be completing a titration sleep study in our sleep lab where you will be sleeping with the CPAP machine on and we will be adjusting your pressures to find your optimal pressure settings. Once we have your results back, we will call you and schedule a follow up to go over the results, you may contact us with any questions or issues as needed. - Clinic Information Contact: [facility] [address] [place] [address] [email or web address] T: [phone]
--- NOTE | 2023-07-14 09:30 | SLEEP CARE CONSULTATION ---
Information from patient questionnaire entered by Adelia Barrett. I have reviewed and concur with the information entered by Adelia Barrett. This document represents the service I personally performed and the decisions made by , Geneva Alaniz ARNP. History of Present Illness Service Date and Time: 07/14/2023 0848 Previous diagnosis: Moderate, Obstructive Sleep Apnea-Hypopnea Syndrome AHI: 16.3 (05/03/23) Reason for follow up: first compliance Equipment type: CPAP (RESMED Airsense 10, s/u 1986) Equipment obtained from: [employer] (getting supplies) Mask style: Full face Backup mask available: No (will keep old mask when replaced) Last cushion change: 1-2 weeks Prior sleep studies: No Type of Sleep Study: Home sleep study (COMPLETED 05/03/23) HPI additional information: CHRISTINA KENYON was diagnosed to have moderate, AHI 16.3, obstructive sleep apnea-hypopnea syndrome and returned today for CPAP therapy first compliance follow-up. Sleep Study - Results Type of Sleep Study: Home sleep study (COMPLETED 05/03/23) Prior sleep studies: No CPAP Compliance Data - Data Reviewed with Patient Average duration of nightly device use: 4 HRS 11 MINS Compliance rate %: 70 (05/31/23-06/29/23; 27/30 days used) Current pressure setting (cmH2O): 5-10 (median 10.1, avg 13.5, max 14.4) Average residual AHI: 9.9 Central apnea: 3.2 Obstructive apnea: 5.7 Hypopnea: 0.8 Average large leak: 0.3 L/min Subjective Missed days of use due to: reports: mask issues, other (pressure) Patient concerns: reports: aerophagia, dry mouth, nose, throat (dry mouth). denies: mask discomfort, air blowing in eyes, mask leak noise, condensation in mask/hose, nasal congestion, epistaxis Observed to snore while using device: No Current pressure setting perceived as: comfortable On therapy, patient: reports: sleeping better, awakening more refreshed. denies: drowsiness while driving Initial Riggins Sleepiness Scale score: 13 (in 2023) Current Riggins Sleepiness Scale score: 4 (07/14/23) Allergies and Home Medications Known drug allergies: Yes (as listed) Drug allergies reviewed: Yes Home medication list reviewed: Yes (no changes) Allergy and home medication list: Allergies Penicillins Adverse Reaction (Verified 07/12/23 08:46) Itching Review of Systems Review of systems same as previous: Yes (NO CHANGE) Physical Exam Vital signs obtained and entered by: ADELIA Mills MA Blood Pressure: 150/95 (LEFT ARM) Cuff size: SMALL Heart Rate: 79 O2 Saturation: 100 Height: 5 ft 4 in Weight: 114 lb Body Mass Index: 19.5 BMI Classification: Normal Impression and Plan 1. Obstructive Sleep Apnea-Hypopnea Syndrome, moderate, with good treatment compliance and fair apnea control with elevated residual AHI. On CPAP therapy, the patient has better sleep quality and is more rested overall. Patient called with bloating when using the CPAP at higher pressures, average was 13.5 cmH2O. The patients pressure was adjusted CPAP 5-10 cmH20 and the aerophagia has reduced overall. Goals for apnea control discussed. Patient's pressure setting is not optimal to control sleep apnea. I advised patient that a titration study will be next step to determine a more optimal pressure setting. He voiced understanding and agreement. Patient's apnea severity and rationale for treatment to reduce apnea, improve sleep quality and reduce cardiovascular and cerebrovascular events was reviewed. I also reviewed the benefit of consistent device use of CPAP for depression/anxiety. * Continue auto CPAP pressure at 5-10 cmH2O * Titration study * Notify me if snoring with mask or feeling that the pressure is too much or too little * Call this office if any problems using CPAP * Return for follow up in after titration study, or sooner if concerns arise Continue with device pressure at (cmH2O): 5-10 Plan: Titration study and follow up Visit Type: In Office Time Spent with Patient (minutes): 24 Provider Statement: I spent 100% of the Face to Face Visit with the patient with greater than 50% spent counseling the patient and coordination of care.
[2023-07-14 09:42] VITALS: BP 150/95; O2SAT 100
== END 2023-07-14 08:49 | disposition home or self-care (01) ==
LOC: SC 08:48
PROVIDERS: ATTEND Nurse Practitioner Family
DX: G47.33 Obstructive sleep apnea (adult) (pediatric) (principal)
CPT/HCPCS: 99212; 99213

== ENCOUNTER 2023-09-03 20:26 | Outpatient (CLI) | payer BC | END 2023-09-03 20:27 | disposition home or self-care (01) | LOC: SC 20:26 | PROVIDERS: ATTEND Nurse Practitioner Family | DX: G47.33 Obstructive sleep apnea (adult) (pediatric) (principal) | CPT/HCPCS: 95810 ==

== ENCOUNTER 2023-10-19 10:04 | Outpatient (CLI) | payer BC ==
--- NOTE | 2023-10-19 10:53 | Sleep Patient Instructions ---
Sleep Center Visit Summary - Patient Visit Information Reason for Visit: Titration study follow-up - Patient Instructions Additional Instructions: You were here for follow up of titration study to find optimal pressure setting. You will be continued on CPAP therapy with pressure at 4-8 cmH2O. Please let us know if the pressure change is uncomfortable and we can make further adjustments of the pressure. You should follow up with sleep care in 1-2 months. You may contact us sooner for any questions or concerns. - Clinic Information Contact: [facility] [address] [place] [id number] [email or web address] T: [phone]
--- NOTE | 2023-10-19 10:57 | SLEEP CARE CONSULTATION ---
Information from patient questionnaire entered by Adelia Barrett. I have reviewed and concur with the information entered by Adelia Barrett. This document represents the service I personally performed and the decisions made by , Geneva Alaniz ARNP. History of Present Illness Service Date and Time: 10/19/2023 1004 Initial Hope Sleepiness Scale score: 13 (in 2023) Current Hope Sleepiness Scale score: 7 (10/19/23) Additional HPI information: CHRISTINA KENYON returns for follow up of the sleep study with a manual CPAP titration study performed on 09/03/23. The patient was informed of the following polysomnography findings: CPAP was initiated at 6 cmH2O and titrated up to CPAP at 9 cmH2O. CPAP at 8 cmH2O appeared to be optimal (AHI of 1.9 per hour on the pressure). There was supine REM sleep on the pressure. Oxygen saturation normal throughout the night. Lower CPAP settings allowed a few residual respiratory events. The patient appeared to have tolerated positive airway pressure therapy very well. Sleep Study - Results Type of Sleep Study: Home sleep study (TITRATION COMPLETD 09/03/23) Prior sleep studies: No Polysomnography/Home Sleep Study results: IMPRESSION: The quality of the study is good. CPAP was initiated at 6 cmH2O and titrated up to CPAP at 9 cmH2O. CPAP at 8 cmH2O appeared to be optimal (AHI of 1.9 per hour on the pressure). There was supine REM sleep on the pressure. Oxygen saturation normal throughout the night. Lower CPAP settings allowed a few residual respiratory events. The patient appeared to have tolerated positive airway pressure therapy very well. The patients sleep efficiency was normal. The sleep architecture was also relatively normal considering the first-night effect. There was no significant periodic leg movement of sleep. Cardiac rhythm was normal sinus rhythm without significant arrhythmia. No abnormal behavior (parasomnia) observed during the night. Allergies and Home Medications Known drug allergies: Yes (as listed) Drug allergies reviewed: Yes Home medication list reviewed: Yes (no changes) Allergy and home medication list: Allergies Penicillins Adverse Reaction (Verified 07/14/23 08:49) Itching Review of Systems Review of systems same as previous: Yes (NO CHANGE) Physical Exam Vital signs obtained and entered by: ADELIA Mills MA Blood Pressure: 151/91 (LEFT ARM) Cuff size: ADLT SMALL Heart Rate: 80 O2 Saturation: 99 Height: 5 ft 4 in Weight: 114 lb Body Mass Index: 19.5 BMI Classification: Normal Impression and Plan 1. Obstructive Sleep Apnea-Hypopnea Syndrome, moderate. He returns to office after titration study for results. His optimal pressure was found to be 8 cmH2O. On CPAP therapy, the patient has better sleep quality and is more rested overall. He liked the pressure on the night of the study and tried a nasal cushion mask, Dreamwear, MW cushion. He liked the mask better and had less nasal dryness. He would like to change his mask to the nasal cushion. I will add this to his prescription today. The patients pressure will be changed to autoCPAP 4-8 cmH20. Patient advised to contact me if pressure change is uncomfortable so that it can be adjusted. Goals for apnea control discussed. Patient's apnea severity and rationale for treatment to reduce apnea, improve sleep quality and reduce cardiovascular and cerebrovascular events was reviewed. I also reviewed the benefit of consistent device use of CPAP for depression/anxiety. * Change auto CPAP pressure to 4-8 cmH2O * Mask change to the nasal cushion, Dreamwear * Notify me if snoring with mask or feeling that the pressure is too much or too little * Call this office if any problems using CPAP * Return for follow up in 1-2 months, or sooner if concerns arise Adjust device pressure to (cmH2O): 4-8 Follow up with Sleep Care in: 1-2 months Visit Type: In Office Time Spent with Patient (minutes): 22 Provider Statement: I spent 100% of the Face to Face Visit with the patient with greater than 50% spent counseling the patient and coordination of care.
[2023-10-19 11:11] VITALS: BP 151/91; O2SAT 99
== END 2023-10-19 10:05 | disposition home or self-care (01) ==
LOC: SC 10:04
PROVIDERS: ATTEND Nurse Practitioner Family
DX: G47.33 Obstructive sleep apnea (adult) (pediatric) (principal)
CPT/HCPCS: 99212; 99213

== ENCOUNTER 2023-10-19 18:48 | Emergency (ER) | payer BC ==
--- NOTE | 2023-10-19 19:30 | ED Physician Documentation ---
History of Present Illness - Stated complaint Stated Complaint: MOHAN/N/V - Chief complaint Chief Complaint: General - Treatment prior to arrival Treatment prior to arrival: Excedrin - Additonal information Additional information: Patient is a 38-year-old male presenting to the emergency department has chronic history of migraines and takes Excedrin for his pain occasionally naproxen. He notes today he had persistent nausea and headaches decided to come to the emergency department. He took Excedrin without relief and came to the emergency department. He denies any photophobia he denies any numbness tingling notes pain is to the top of his head. He denies any unilateral facial pain no lacrimation. No fevers no neck pain. He denies any URI symptoms including cough sore throat runny nose. He was previously seeing a neurologist but did not continue to follow-up in the past. He denies any recent trauma to the head. PD PAST MEDICAL HISTORY - Past Medical History Past Medical History: Yes Cardiovascular: None Respiratory: None Neuro: Migraines Endocrine/Autoimmune: None GI: None : None HEENT: None Psych: Depression, Anxiety Musculoskeletal: None Derm: None - Past Surgical History Past Surgical History: No - Present Medications Home Medications: Ambulatory Orders Medication Instructions Recorded Confirmed Benadryl See Rx Instructions .ROUTE 04/06/23 10/19/23 .COMPLEX PRN Venlafaxine 225 mg ORAL DAILY 04/06/23 10/19/23 Naproxen 250 mg PO BID PRN #15 tablet 10/19/23 Pseudoephedrine HCl [Sudafed 12 See Rx Instructions .ROUTE .COMPLEX 10/19/23 10/19/23 Hour] - Allergies Allergies/Adverse Reactions: Allergies Allergy/AdvReac Type Severity Reaction Status Date / Time Penicillins AdvReac Itching Verified 10/19/23 19:04 - Social History Does the pt smoke?: No Smoking Status: Never smoker Does the pt drink ETOH?: No Does the pt have substance abuse?: No - Immunizations Immunizations are current?: Yes Immunizations: TDAP >10years/unknown - POLST Patient has POLST: No PD ED PE NORMAL - Vitals Vital signs reviewed: Yes - General General: Alert and oriented X 3 - HEENT HEENT: Atraumatic, PERRL, EOMI, Ears normal, Moist mucous membranes - Neck Neck: Supple, no meningeal sign - Cardiac Cardiac: RRR, No murmur, No gallop, No rub, Strong equal pulses - Respiratory Respiratory: No respiratory distress, Clear bilaterally - Abdomen Abdomen: Normal bowel sounds - Male Male : Deferred - Rectal Rectal: Deferred - Derm Derm: No rash - Extremities Extremities: No deformity - Neuro Neuro: Alert and oriented X 3, administrative support associate 2-12 intact, No motor deficit, No sensory deficit, Normal speech, Other (Patient appears in no acute distressAble to answer questions no slurring of words) Eye Opening: Spontaneous Motor: Obeys Commands Verbal: Oriented GCS Score: 15 Results - Vitals Vitals: Vital Signs - 24 hr 10/19/23 10/19/23 19:00 21:50 Temperature 36.9 C Heart Rate 72 71 Respiratory 18 16 Rate Blood Pressure 143/96 H 133/88 H O2 Saturation 100 98 Oxygen O2 Source Room air - Labs Labs: Laboratory Tests 10/19/23 10/19/23 10/19/23 19:55 19:55 19:55 WBC 7.3 RBC 6.28 H Hgb 12.6 L Hct 43.3 MCV 68.9 L MCH 20.1 L MCHC 29.1 L RDW 14.6 Plt Count 259 MPV 9.4 Neut # (Auto) Not Reportable Lymph # (Auto) Not Reportable Roosevelt # (Auto) Not Reportable Eos # (Auto) Not Reportable Baso # (Auto) Not Reportable Absolute Nucleated RBC Not Reportable Total Counted 100 Band Neuts % (Manual) 0 Abnorm Lymph % (Manual) 1 Nucleated RBC % Not Reportable Neutrophils # (Manual) 4.0 Lymphocytes # (Manual) 1.4 L Monocytes # (Manual) 0.2 Eosinophils # (Manual) 1.5 H Basophils # (Manual) 0.2 H Differential Comment MANUAL DIFFERENTIAL WBC Morphology 1+ SMUDGE CELLS Platelet Estimate NORMAL (130-450,000) Platelet Morphology NORMAL APPEARANCE RBC Morph Micro Appear 1+ TARGET CELLS Sodium 141 Potassium 3.9 Chloride 105 Carbon Dioxide 33 H Anion Gap 3.0 L BUN 14 Creatinine 1.1 Estimated GFR (MDRD) 75 L Glucose 109 H Calcium 9.9 Magnesium 2.1 Total Bilirubin 0.5 AST 15 ALT 16 Alkaline Phosphatase 80 Total Protein 7.4 Albumin 4.4 Globulin 3.0 Albumin/Globulin Ratio 1.5 Nasal Adenovirus (PCR) NOT DETECTED Nasal B. parapertussis DNA (PCR) NOT DETECTED Nasal Coronavir 229E PCR NOT DETECTED Nasal Coronavir HKU1 PCR NOT DETECTED Nasal Coronavir NL63 PCR NOT DETECTED Nasal Coronavir OC43 PCR NOT DETECTED Nasal Enterovir/Rhinovir PCR NOT DETECTED Nasal Influenza B PCR NOT DETECTED Nasal Influenza A PCR NOT DETECTED Nasal Parainfluen 1 PCR NOT DETECTED Nasal Parainfluen 2 PCR NOT DETECTED Nasal Parainfluen 3 PCR NOT DETECTED Nasal Parainfluen 4 PCR NOT DETECTED Nasal RSV (PCR) NOT DETECTED Nasal B.pertussis DNA PCR NOT DETECTED Nasal C.pneumoniae (PCR) NOT DETECTED Shamar Human Metapneumo PCR NOT DETECTED Nasal M.pneumoniae (PCR) NOT DETECTED Nasal SARS-CoV-2 (PCR) NOT DETECTED PD Medical Decision Making - ED course Complexity details: reviewed old records, reviewed results, re-evaluated patient ED course: Patient is a 38-year-old male presenting to the emergency department with head pain and nausea. Symptoms have been going on for about 2 days now. Patient denies any vision changes no numbness tingling no loss of sensation. He notes he has chronic history of migraines takes Excedrin for symptoms follows with his PCP. Denies any trauma to his head he took Excedrin today pain is not worse than normal but given symptoms of nausea he decided to come to emergency department. Vital signs are stable on arrival normotensive afebrile nontachycardic. Basic labs were obtained given patient's persistent symptoms and symptoms of nausea. Labs do show mild anemia patient was instructed to follow-up with his PCP for these findings. Electrolytes stable No significant electrolyte abnormality no significant PRACHI noted. Reevaluated patient after Toradol Reglan Benadryl and fluids given patient feeling significantly better headache resolved here in the emergency department. Patient feels safe with discharge home.Patient given strict return precautions including vision changes neck pain fevers persistent headache nausea vomiting or any other new or worsening symptoms. Patient understands and is agreeable with this plan will follow-up in outpatient setting for anemia with PCP. Departure - Departure Disposition: 01 Home, Self Care Clinical Impression: Acute pain, Recurrent headache, Headache, Anemia Condition: Good Instructions: ED Headache Migraine Prescriptions: Naproxen 250 mg PO BID PRN #15 tablet PRN Reason: Pain Comments: Your workup here in the emergency department was reassuring you do have signs of anemia I need to follow-up with the PCP in the outpatient setting I have sent naproxen for any persistent head pain however return if you develop severe headaches vision changes numbness tingling weakness in extremities. Forms: PCP List Discharge Date/Time: 10/19/23 21:51
[2023-10-19] MEDS: SODIUM CHLORIDE 0.9% 1,000 ML IV STA (19:37)
[2023-10-19] MEDS: METOCLOPRAMIDE 10 MG/2 ML VIAL IVP STA (19:37)
[2023-10-19] MEDS: diphenhydrAMINE INJ 50 MG/ML VIAL IVP STA (19:38)
[2023-10-19 20:10] LABS: BASOPHILS % (AUTO) 1.2 %; EOSINOPHILS % (AUTO) 14.9 %; HCT - HEMATOCRIT 43.3 % (42.0-52.0); HGB - HEMOGLOBIN 12.6 g/dL (14.0-18.0); LYMPHOCYTES % (AUTO) 20.9 %; MEAN CORPUSCULAR HEMOGLOBIN 20.1 pg (27.0-31.0); MEAN CORPUSCULAR HGB CONC 29.1 g/dL (32.0-36.0); MEAN CORPUSCULAR VOLUME 68.9 fL (80.0-94.0); MEAN PLATELET VOLUME 9.4 fL (7.4-11.4); MONOCYTES % (AUTO) 7.2 %; NEUTROPHILS % (AUTO) 55.7 %; PLT - PLATELET COUNT 259 10^3/uL (130-450); RED BLOOD COUNT 6.28 10^6/uL (4.70-6.10); RED CELL DISTRIBUTION WIDTH 14.6 % (12.0-15.0); WHITE BLOOD COUNT 7.3 x10^3/uL (4.8-10.8)
[2023-10-19 20:16] LABS: ALBUMIN 4.4 g/dL (3.2-5.5); ALBUMIN/GLOBULIN RATIO 1.5 (1.0-2.2); BILIRUBIN,TOTAL 0.5 mg/dL (0.2-1.0); CALCIUM 9.9 mg/dL (8.5-10.3); CREATININE 1.1 mg/dL (0.6-1.3); MAGNESIUM 2.1 mg/dL (1.7-2.3); POTASSIUM 3.9 mmol/L (3.5-4.5); TOTAL PROTEIN 7.4 g/dL (6.4-8.9)
[2023-10-19 20:18] LABS: BAND NEUTROPHILS % (MANUAL) 0 %
[2023-10-19 20:38] LABS: ABNORMAL LYMPHS % (MANUAL) 1 %; BASOPHILS # (MANUAL) 0.2 10^3/uL (0-0.1); BASOPHILS % (MANUAL) 3 %; EOSINOPHILS # (MANUAL) 1.5 10^3/uL (0-0.7); LYMPHOCYTES # (MANUAL) 1.4 10^3/uL (1.5-3.5); LYMPHOCYTES % (MANUAL) 18 %; MONOCYTES # (MANUAL) 0.2 10^3/uL (0.0-1.0)
[2023-10-19 20:44] LABS: DIFFERENTIAL COMMENT MANUAL DIFFERENTIAL; PLATELET ESTIMATE, MANUAL NORMAL (130-450,000) (NORMAL); PLATELET MORPHOLOGY NORMAL APPEARANCE (NORMAL); WBC MORPHOLOGY (MULTIPLE) 1+ SMUDGE CELLS (NORMAL)
[2023-10-19 20:47] LABS: B. PARAPERTUSSIS- RESP PCR PAN NOT DETECTED; B. PERTUSSIS- RESP PCR PANEL NOT DETECTED; C. PNEUMONIAE- RESP PCR PANEL NOT DETECTED; CORONAVIRUS 229E-RESP PCR NOT DETECTED; CORONAVIRUS HKU1-RESP PCR NOT DETECTED; CORONAVIRUS NL63-RESP PCR NOT DETECTED; CORONAVIRUS OC43-RESP PCR NOT DETECTED; HUMAN METAPNEUMOVIRUS NOT DETECTED; INFLUENZA A- RESP PCR PANEL NOT DETECTED; INFLUENZA B - RESP PCR PANEL NOT DETECTED; M. PNEUMONIAE- RESP PCR PANEL NOT DETECTED; PARAINFLUENZA VIRUS 1 NOT DETECTED; PARAINFLUENZA VIRUS 2 NOT DETECTED; PARAINFLUENZA VIRUS 3 NOT DETECTED; PARAINFLUENZA VIRUS 4 NOT DETECTED; RHINOVIRUS/ENTEROVIRUS NOT DETECTED; RSV- RESP PCR PANEL NOT DETECTED; SARS-CoV-2 -RESP PCR PANEL NOT DETECTED
[2023-10-19 21:57] VITALS: BP 133/88; O2SAT 98
== END 2023-10-19 21:51 | disposition home or self-care (01) ==
LOC: ED 18:48
DX: R51.9 Headache, unspecified (principal); R11.0 Nausea; D64.9 Anemia, unspecified
CPT/HCPCS: 36415; 80053; 83735; 85025; 87633; 96374; 96375; 99283; J1200; J2765

== ENCOUNTER 2023-11-16 09:04 | Outpatient (CLI) | payer BC ==
--- NOTE | 2023-11-16 10:19 | Sleep Patient Instructions ---
Sleep Center Visit Summary - Patient Visit Information Reason for Visit: 6-week follow-up for Pap therapy - Patient Instructions Additional Instructions: You were here for follow up of CPAP therapy. You will be continued on CPAP therapy with pressure at 4-8 cmH2O. You should follow up with sleep care in 3 months. You may contact us sooner for any questions or concerns. - Clinic Information Contact: [facility] [address] [place] [id number] [email or web address] T: [phone]
--- NOTE | 2023-11-16 10:23 | SLEEP CARE CONSULTATION ---
Information from patient questionnaire entered by Nica Torres. I have reviewed and concur with the information entered by Nica Torres. This document represents the service I personally performed and the decisions made by , Geneva Alaniz ARNP. History of Present Illness Service Date and Time: 11/16/2023 09 Previous diagnosis: Moderate, Obstructive Sleep Apnea-Hypopnea Syndrome AHI: 16.3 (05/03/23) Reason for follow up: other (6-week F/U -Pressure change) Equipment type: CPAP (RESMED Airsense 10, s/u 1986) Equipment obtained from: [employer] ([employer]) Mask style: Nasal pillows Mask brand: [employer]roval[employer] ([employer]) Backup mask available: No Last cushion change: 6 weeks Prior sleep studies: No Type of Sleep Study: Home sleep study (TITRATION COMPLETD 09/03/23) HPI additional information: CHRISTINA KENYON was diagnosed to have moderate, AHI 16.3, obstructive sleep apnea-hypopnea syndrome and returned today for CPAP therapy six week after pressure change follow-up. Sleep Study - Results Type of Sleep Study: Home sleep study (TITRATION COMPLETD 09/03/23) Prior sleep studies: No CPAP Compliance Data - Data Reviewed with Patient Average duration of nightly device use: 4 h 5 min Compliance rate %: 60 (10/15/23-11/13/23; 30/ days used) Current pressure setting (cmH2O): 4-8 (median 7.1, avg 8.1, max 8.2) Average residual AHI: 7.9 Central apnea: 5 Obstructive apnea: 2.1 Hypopnea: 0.5 Average large leak: 0 L/min Compliance data discussion: He does wear mask for about 30-60 minutes before falling asleep. Subjective Patient concerns: reports: nasal congestion (improved with increase of humidifier), other (Bloated-much improved). denies: aerophagia, mask discomfort, air blowing in eyes, mask leak noise, condensation in mask/hose, dry mouth, nose, throat, epistaxis Observed to snore while using device: No Current pressure setting perceived as: comfortable On therapy, patient: reports: sleeping better, awakening more refreshed, being more awake and alert during the day, more rested overall. denies: drowsiness while driving Initial Nichols Sleepiness Scale score: 13 (in 2023) Current Nichols Sleepiness Scale score: 6 (in 2023) Allergies and Home Medications Known drug allergies: Yes (as listed) Drug allergies reviewed: Yes Home medication list reviewed: Yes (sumatriptin) Allergy and home medication list: Allergies Penicillins Adverse Reaction (Verified 10/19/23 19:04) Itching Review of Systems Review of systems same as previous: No (migraine concerns) Physical Exam Vital signs obtained and entered by: Geneva Casey NP Blood Pressure: 126/87 Cuff size: regular (right arm) Heart Rate: 71 O2 Saturation: 99 Height: 5 ft 4 in Weight: 115 lb Weight change since last visit: 1 lb gain Body Mass Index: 19.7 BMI Classification: Normal Impression and Plan 1. Obstructive Sleep Apnea-Hypopnea Syndrome, moderate, with fair treatment compliance and fair apnea control with elevated residual AHI. On CPAP therapy, the patient has better sleep quality and is more rested overall. He has significant improvement of his sleep apnea and is satisfied with current CPAP therapy. He states the pressure is comfortable in the aerophagia and nasal congestion have greatly reduced. He is getting the mask on nightly but is not always making the 4 hours and we discussed ways to increase compliance with using his mask. He states he is really trying to monitor it and make sure he is getting enough time in the mask. His residual AHI is slightly elevated but due to minimal aerophagia will not increase pressure at this time. Patient's apnea severity and rationale for treatment to reduce apnea, improve sleep quality and reduce cardiovascular and cerebrovascular events was reviewed. I also reviewed the benefit of consistent device use of CPAP for depression/anxiety. * Continue auto CPAP pressure at 4-8 cmH2O * Notify me if snoring with mask or feeling that the pressure is too much or too little * Attempt to lose weight * Call this office if any problems using CPAP * Return for follow up in 3 months, or sooner if concerns arise Counseling Topics: Spare mask Follow up with Sleep Care in: 3 months Visit Type: In Office Time Spent with Patient (minutes): 24 Provider Statement: I spent 100% of the Face to Face Visit with the patient with greater than 50% spent counseling the patient and coordination of care.
[2023-11-16 10:32] VITALS: BP 126/87; O2SAT 99
== END 2023-11-16 09:05 | disposition home or self-care (01) ==
LOC: SC 09:04
PROVIDERS: ATTEND Nurse Practitioner Family
DX: G47.33 Obstructive sleep apnea (adult) (pediatric) (principal)
CPT/HCPCS: 99212; 99213